=== PATIENT | male | born 1995 | race African-American/Black ===

== ENCOUNTER 2018-10-14 21:14 | Emergency (ER) | payer SELFPAY ==
--- NOTE | 2018-10-14 23:29 | ULT ---
FOCUSED ULTRASOUND OF THE PENIS 10/14/18 COMPARISON: None. HISTORY: Focal area of swelling involving the left aspect of the penis. TECHNIQUE: Multiplanar huynh scale sonographic imaging of the area of clinical concern obtained. FINDINGS: Focal area of mild soft tissue prominence is noted. No drainable abscess is noted. Findings may be on the basis of cellulitis. IMPRESSION: No evidence for a drainable abscess. POS: [facility]
== END 2018-10-14 23:07 | disposition home or self-care (01) ==
LOC: ERS 21:14
DX: N48.22 Cellulitis of corpus cavernosum and penis (principal); F41.9 Anxiety disorder, unspecified; F31.9 Bipolar disorder, unspecified; F17.210 Nicotine dependence, cigarettes, uncomplicated
CPT/HCPCS: 76999

== ENCOUNTER 2023-01-29 08:35 | Emergency (ER) | payer SELFPAY | END 2023-01-29 09:52 | disposition home or self-care (01) | LOC: ERS 08:35 | DX: B34.9 Viral infection, unspecified (principal); F17.210 Nicotine dependence, cigarettes, uncomplicated | CPT/HCPCS: 99283 ==

== ENCOUNTER 2024-01-31 05:29 | Emergency (ER) | payer SELFPAY ==
[2024-01-31] MEDS ORDERED: fentaNYL 50 mcg/mL 1 mL Vial ONE (05:42)
[2024-01-31] MEDS ORDERED: Ondansetron PF 4 MG/2 ML Vial ONE (05:42)
[2024-01-31 05:59] LABS: #Basophils 0.03 10x3/uL (0.0-0.2); %Basophils 0.3 % (0.0-1.0); %Eosinophils 3.2 % (0.0-10.0); %Lymphocytes 30.6 % (21.0-51.0); %Monocytes 10.8 % (0.0-10.0); %Neutrophils 54.6 % (42.0-75.0); Hematocrit 39.6 % (42.0-52.0); Hemoglobin 13.3 g/dL (14.0-18.0); Mean Corpuscular HGB CONC 33.6 g/dL (32.0-36.0); Mean Corpuscular Hemoglobin 30.9 pg (27.0-31.0); Mean Corpuscular Volume 91.9 fL (78.0-98.0); Mean Platelet Volume 10.2 fL (7.4-10.4); Platelet Count 268 10x3/uL (130-400); RBC Distribution Width 12.6 % (11.5-14.5); Red Blood Cell (RBC) Count 4.31 mill/uL (4.70-6.10)
[2024-01-31 06:20] LABS: ALT (SGPT) 15 U/L (8-55); AST (SGOT) 44 U/L (5-34); Albumin 4.1 g/dL (3.5-5.0); Alkaline Phosphatase 54 U/L (40-110); Anion Gap 13 mmol/L (10-20); BUN (Urea Nitrogen) 8 mg/dL (8.9-20.6); Bilirubin, Total 0.4 mg/dL (0.2-1.2); Calc. Creatinine Clearance 0 mL/min (70-130); Calcium 9.6 mg/dL (7.8-10.44); Carbon Dioxide 27 mmol/L (22-29); Chloride 107 mmol/L (98-107); Estimated GFR 110; Globulin 2.7 g/dL (2.4-3.5); Glucose 98 mg/dL (70-105); Potassium 4.2 mmol/L (3.5-5.1); Protein, Total 6.8 g/dL (6.0-8.3); Sodium 143 mmol/L (136-145)
[2024-01-31] MEDS ORDERED: Ketorolac Tromethamine 30 MG (1 mL) VIAL ONE (06:25)
[2024-01-31] MEDS ORDERED: Iopamidol-370 76% 500 ML MDV (1 ML CHARGE) ONE (11:46)
== END 2024-01-31 08:20 | disposition home or self-care (01) ==
LOC: ERS 05:29
DX: S20.222A Contusion of left back wall of thorax, initial encounter (principal); F17.210 Nicotine dependence, cigarettes, uncomplicated; W17.89XA Other fall from one level to another, initial encounter; Y93.89 Activity, other specified; Y92.69 Other specified industrial and construction area as the place of occurrence of the external cause; Z55.0 Illiteracy and low-level literacy
CPT/HCPCS: 71260; 74177; 80053; 85025; 96374; 96375; J1885; J2405; J3010; Q9967

== ENCOUNTER 2024-03-06 13:23 | Emergency (ER) | payer OTHER ==
[2024-03-06] MEDS ORDERED: Acetaminophen 500 MG TAB ONE (14:56)
[2024-03-06] MEDS ORDERED: Ketorolac Tromethamine 30 MG (1 mL) VIAL ONE (14:56)
[2024-03-06] MEDS ORDERED: Lidocaine 4% Patch TD SCH (15:30)
[2024-03-06] MEDS ORDERED: Methocarbamol 500 MG TAB PO SCH (15:45)
[2024-03-06] MEDS ORDERED: Methocarbamol 500 MG TAB ONE (16:48)
[2024-03-07] MEDS ORDERED: Transdermal Patch Removal TOP SCH (03:30)
== END 2024-03-06 17:04 | disposition home or self-care (01) ==
LOC: ERS 13:23
DX: R07.81 Pleurodynia (principal); F17.210 Nicotine dependence, cigarettes, uncomplicated
CPT/HCPCS: 71260; 96372; J1885